=== PATIENT | female | born 1960 | race Caucasian/White ===

== ENCOUNTER 2016-10-22 13:57 | Emergency (ER) | payer MEDICAID ==
[~2016-10-22] VITALS: Ht 175.3 cm; Wt 108.9 kg
--- OUTSIDE RECORDS SUMMARY | 2016-10-22 14:06 | XMS REPORT | Continuity of Care Document ---
Author Author [facility] Address Unknown Phone Unavailable Allergies Active Description Code Type Severity Reaction Onset Reported/Identified Relationship to Patient Clinical Status Yes codeine Drug Allergy N/A N/A 12/15/2009 Yes Penicillins Drug Allergy N/A N/A 12/15/2009 Yes codeine Drug Allergy 12/15/2009 Yes Penicillins Drug Allergy 12/15/2009 Medications Problems Date Dx Coded Attending Type Code Diagnosis Diagnosed By 12/15/2009 PAMELLA PHAM MD 309.81 POSTTRAUMATIC STRESS DISORDER 12/15/2009 PAMELLA PHAM MD 401.9 HYPERTENSION, UNSPECIFIED ESSENTIAL 12/15/2009 PAMELLA PHAM MD 716.90 ARTHRITIS/ ARTHROPATHY, UNSPECIFIED 12/15/2009 DUDLEY MIGUEL DO 309.81 POSTTRAUMATIC STRESS DISORDER 12/15/2009 DUDLEY MIGUEL DO 401.9 HYPERTENSION, UNSPECIFIED ESSENTIAL 12/15/2009 DUDLEY MIGUEL DO 716.90 ARTHRITIS/ ARTHROPATHY, UNSPECIFIED 12/15/2009 PAMELLA PHAM MD 309.81 POSTTRAUMATIC STRESS DISORDER 12/15/2009 PAMELLA PHAM MD 401.9 HYPERTENSION, UNSPECIFIED ESSENTIAL 12/15/2009 PAMELLA PHAM MD6.90 ARTHRITIS/ ARTHROPATHY, UNSPECIFIED 12/15/2009 PAMELLA PHAM MD 309.81 POSTTRAUMATIC STRESS DISORDER 12/15/2009 PAMELLA PHAM MD 401.9 HYPERTENSION, UNSPECIFIED ESSENTIAL 12/15/2009 PAMELLA PHAM MD6.90 ARTHRITIS/ ARTHROPATHY, UNSPECIFIED 12/15/2009 PAMELLA PHAM MD 309.81 POSTTRAUMATIC STRESS DISORDER 12/15/2009 PAMELLA PHAM MD 401.9 HYPERTENSION, UNSPECIFIED ESSENTIAL 12/15/2009 PAMELLA PHAM MD6.90 ARTHRITIS/ ARTHROPATHY, UNSPECIFIED 12/15/2009 309.81 POSTTRAUMATIC STRESS DISORDER 12/15/2009 401.9 HYPERTENSION, UNSPECIFIED ESSENTIAL 12/15/2009 716.90 ARTHRITIS/ ARTHROPATHY, UNSPECIFIED 12/15/2009 309.81 POSTTRAUMATIC STRESS DISORDER 12/15/2009 401.9 HYPERTENSION, UNSPECIFIED ESSENTIAL 12/15/2009 716.90 ARTHRITIS/ ARTHROPATHY, UNSPECIFIED 12/15/2009 309.81 POSTTRAUMATIC STRESS DISORDER 12/15/2009 401.9 HYPERTENSION, UNSPECIFIED ESSENTIAL 12/15/2009 716.90 ARTHRITIS/ ARTHROPATHY, UNSPECIFIED 12/15/2009 VERO DENIS, PAMELLA 309.81 POSTTRAUMATIC STRESS DISORDER 12/15/2009 VERO DENIS, PAMELLA 401.9 HYPERTENSION, UNSPECIFIED ESSENTIAL 12/15/2009 VERO DENIS, PAMELLA Joyce6.90 ARTHRITIS/ ARTHROPATHY, UNSPECIFIED 12/15/2009 VERO DENIS, PAMELLA 309.81 POSTTRAUMATIC STRESS DISORDER 12/15/2009 VERO DENIS, PAMELLA 401.9 HYPERTENSION, UNSPECIFIED ESSENTIAL 12/15/2009 VERO DENIS, PAMELLA Joyce6.90 ARTHRITIS/ ARTHROPATHY, UNSPECIFIED 12/15/2009 VERO DENIS, PAMELLA 309.81 POSTTRAUMATIC STRESS DISORDER 12/15/2009 VERO DENIS, PAMELLA 401.9 HYPERTENSION, UNSPECIFIED ESSENTIAL 12/15/2009 VERO DENIS, PAMELLA Rivera.90 ARTHRITIS/ ARTHROPATHY, UNSPECIFIED 12/15/2009 VERO DENIS, PAMELLA 309.81 POSTTRAUMATIC STRESS DISORDER 12/15/2009 VERO DENIS, PAMELLA 401.9 HYPERTENSION, UNSPECIFIED ESSENTIAL 12/15/2009 VERO DENIS, PAMELLA Rivera.90 ARTHRITIS/ ARTHROPATHY, UNSPECIFIED 12/15/2009 309.81 POSTTRAUMATIC STRESS DISORDER 12/15/2009 401.9 HYPERTENSION, UNSPECIFIED ESSENTIAL 12/15/2009 Isiah6.90 ARTHRITIS/ ARTHROPATHY, UNSPECIFIED 12/15/2009 VERO DENIS, PAMELLA 309.81 POSTTRAUMATIC STRESS DISORDER 12/15/2009 VERO DENIS, PAMELLA 401.9 HYPERTENSION, UNSPECIFIED ESSENTIAL 12/15/2009 VERO DENIS, PAMELLA Rivera.90 ARTHRITIS/ ARTHROPATHY, UNSPECIFIED 12/15/2009 VERO DENIS, PAMELLA 309.81 POSTTRAUMATIC STRESS DISORDER 12/15/2009 VERO DENIS, PAMELLA 401.9 HYPERTENSION, UNSPECIFIED ESSENTIAL 12/15/2009 VERO DENIS, PAMELLA Joyce6.90 ARTHRITIS/ ARTHROPATHY, UNSPECIFIED 12/15/2009 VERO DENIS, PAMELLA 309.81 POSTTRAUMATIC STRESS DISORDER 12/15/2009 VERO DENIS, PAMELLA 401.9 HYPERTENSION, UNSPECIFIED ESSENTIAL 12/15/2009 VERO DENIS, PAMELLA 716.90 ARTHRITIS/ ARTHROPATHY, UNSPECIFIED 12/15/2009 VERO DENIS, PAMELLA 309.81 POSTTRAUMATIC STRESS DISORDER 12/15/2009 VERO DENIS, PAMELLA 401.9 HYPERTENSION, UNSPECIFIED ESSENTIAL 12/15/2009 VERO DENIS, PAMELLA 716.90 ARTHRITIS/ ARTHROPATHY, UNSPECIFIED 12/15/2009 PRECIOUS THACKER, RAYRAY A 309.81 POSTTRAUMATIC STRESS DISORDER 12/15/2009 PRECIOUS THACKER, RAYRAY A 401.9 HYPERTENSION, UNSPECIFIED ESSENTIAL 12/15/2009 PRECIOUS APRN, RAYRAY A 716.90 ARTHRITIS/ ARTHROPATHY, UNSPECIFIED 02/09/2010 VERO DENIS, PAMELLA 296.30 MO DEPRESSIVE RECURRENT UNSPECIFIED 02/09/2010 PAMELLA PHAM MD V58.69 Medication High Risk 02/09/2010 DUDLEY MIGUEL DO 296.30 MO DEPRESSIVE RECURRENT UNSPECIFIED 02/09/2010 DUDLEY MIGUEL DO V58.69 Medication High Risk 02/09/2010 PAMELLA PHAM MD 296.30 MO DEPRESSIVE RECURRENT UNSPECIFIED 02/09/2010 PAMELLA PHAM MD V58.69 Medication High Risk 02/09/2010 PAMELLA PHAM MD 296.30 MO DEPRESSIVE RECURRENT UNSPECIFIED 02/09/2010 PAMELLA PHAM MD V58.69 Medication High Risk 02/09/2010 PAMELLA PHAM MD 296.30 MO DEPRESSIVE RECURRENT UNSPECIFIED 02/09/2010 PAMELLA PHAM MD V58.69 Medication High Risk 02/09/2010 296.30 MO DEPRESSIVE RECURRENT UNSPECIFIED 02/09/2010 V58.69 Medication High Risk 02/09/2010 296.30 MO DEPRESSIVE RECURRENT UNSPECIFIED 02/09/2010 V58.69 Medication High Risk 02/09/2010 296.30 MO DEPRESSIVE RECURRENT UNSPECIFIED 02/09/2010 V58.69 Medication High Risk 02/09/2010 PAMELLA PHAM MD 296.30 MO DEPRESSIVE RECURRENT UNSPECIFIED 02/09/2010 PAMELLA PHAM MD V58.69 Medication High Risk 02/09/2010 VERO DENIS, PAMELLA 296.30 MO DEPRESSIVE RECURRENT UNSPECIFIED 02/09/2010 PAMELLA PHAM MD V58.69 Medication High Risk 02/09/2010 VERO DENIS, PAMELLA 296.30 MO DEPRESSIVE RECURRENT UNSPECIFIED 02/09/2010 VERO DENIS, PAMELLA V58.69 Medication High Risk 02/09/2010 VERO DENIS, PAMELLA 296.30 MO DEPRESSIVE RECURRENT UNSPECIFIED 02/09/2010 VERO DENIS, PAMELLA V58.69 Medication High Risk 02/09/2010 296.30 MO DEPRESSIVE RECURRENT UNSPECIFIED 02/09/2010 V58.69 Medication High Risk 02/09/2010 VERO DENIS, PAMELLA 296.30 MO DEPRESSIVE RECURRENT UNSPECIFIED 02/09/2010 VERO DENIS, PAMELLA V58.69 Medication High Risk 02/09/2010 VERO DENIS, PAMELLA 296.30 MO DEPRESSIVE RECURRENT UNSPECIFIED 02/09/2010 VERO DENIS, PAMELLA V58.69 Medication High Risk 02/09/2010 VERO DENIS, PAMELLA 296.30 MO DEPRESSIVE RECURRENT UNSPECIFIED 02/09/2010 VERO DENIS, PAMELLA V58.69 Medication High Risk 02/09/2010 VERO DENIS, PAMELLA 296.30 MO DEPRESSIVE RECURRENT UNSPECIFIED 02/09/2010 VERO DENIS, PAMELLA V58.69 Medication High Risk 02/09/2010 PRECIOUS THACKER, RAYRAY A 296.30 MO DEPRESSIVE RECURRENT UNSPECIFIED 02/09/2010 PRECIOUS THACKER RAYRAY A V58.69 Medication High Risk 05/21/2010 VERO DENIS, PAMELLA 461.9 Sinusitis Acute 05/21/2010 DUDLEY MIGUEL DO 461.9 Sinusitis Acute 05/21/2010 VERO DENIS, PAMELLA 461.9 Sinusitis Acute 05/21/2010 PAMELLA PHAM MD 461.9 Sinusitis Acute 05/21/2010 PAMELLA PHAM MD 461.9 Sinusitis Acute 05/21/2010 461.9 Sinusitis Acute 05/21/2010 461.9 Sinusitis Acute 05/21/2010 461.9 Sinusitis Acute 05/21/2010 VERO DENIS, PAMELLA 461.9 Sinusitis Acute 05/21/2010 VERO DENIS, PAMELLA 461.9 Sinusitis Acute 05/21/2010 VERO DENIS, PAMELLA 461.9 Sinusitis Acute 05/21/2010 PAMELLA PHAM MD 461.9 Sinusitis Acute 05/21/2010 461.9 Sinusitis Acute 05/21/2010 PAMELLA PHAM MD 461.9 Sinusitis Acute 05/21/2010 VERO DENIS, PAMELLA 461.9 Sinusitis Acute 05/21/2010 VERO DENIS, PAMELLA 461.9 Sinusitis Acute 05/21/2010 VERO DENIS, PAMELLA 461.9 Sinusitis Acute 05/21/2010 PRECIOUS THACKER, RAYRAY A 461.9 Sinusitis Acute 08/31/2010 PAMELLA PHAM MD 296.90 UNSPECIFIED EPISODIC MOOD DISORDER 08/31/2010 DUDLEY MIGUEL DO 296.90 UNSPECIFIED EPISODIC MOOD DISORDER 08/31/2010 PAMELLA PHAM MD 296.90 UNSPECIFIED EPISODIC MOOD DISORDER 08/31/2010 PAMELLA PHAM MD 296.90 UNSPECIFIED EPISODIC MOOD DISORDER 08/31/2010 PAMELLA PHAM MD 296.90 UNSPECIFIED EPISODIC MOOD DISORDER 08/31/2010 296.90 UNSPECIFIED EPISODIC MOOD DISORDER 08/31/2010 296.90 UNSPECIFIED EPISODIC MOOD DISORDER 08/31/2010 296.90 UNSPECIFIED EPISODIC MOOD DISORDER 08/31/2010 PAMELLA PHAM MD 296.90 UNSPECIFIED EPISODIC MOOD DISORDER 08/31/2010 PAMELLA PHAM MD 296.90 UNSPECIFIED EPISODIC MOOD DISORDER 08/31/2010 PAMELLA PHAM MD 296.90 UNSPECIFIED EPISODIC MOOD DISORDER 08/31/2010 PAMELLA PHAM MD 296.90 UNSPECIFIED EPISODIC MOOD DISORDER 08/31/2010 296.90 UNSPECIFIED EPISODIC MOOD DISORDER 08/31/2010 PAMELLA PHAM MD 296.90 UNSPECIFIED EPISODIC MOOD DISORDER 08/31/2010 PAMELLA PHAM MD 296.90 UNSPECIFIED EPISODIC MOOD DISORDER 08/31/2010 PAMELLA PHAM MD 296.90 UNSPECIFIED EPISODIC MOOD DISORDER 08/31/2010 PAMELLA PHAM MD 296.90 UNSPECIFIED EPISODIC MOOD DISORDER 08/31/2010 RAYRAY LANG APRN A 296.90 UNSPECIFIED EPISODIC MOOD DISORDER 09/21/2010 PAMELLA PHAM MD 305.1 TOBACCO ABUSE 09/21/2010 PAMELLA PHAM MD 466.0 Bronchitis, Acute 09/21/2010 PAMELLA PHAM MD 786.2 Cough 09/21/2010 DUDLEY MIGUEL DO F 305.1 TOBACCO ABUSE 09/21/2010 DUDLEY MIGUEL DO F 466.0 Bronchitis, Acute 09/21/2010 DUDLEY MIGUEL DO F 786.2 Cough 09/21/2010 VERO DENIS, PAMELLA 305.1 TOBACCO ABUSE 09/21/2010 VERO DENIS, PAMELLA 466.0 Bronchitis, Acute 09/21/2010 VERO DENIS, PAMELLA 786.2 Cough 09/21/2010 VERO DENIS, PAMELLA 305.1 TOBACCO ABUSE 09/21/2010 VERO DENIS, PAMELLA 466.0 Bronchitis, Acute 09/21/2010 VERO DENIS, PAMELLA 786.2 Cough 09/21/2010 VERO DENIS, PAMELLA 305.1 TOBACCO ABUSE 09/21/2010 VERO DENIS, PAMELLA 466.0 Bronchitis, Acute 09/21/2010 VERO DENIS, PAMELLA 786.2 Cough 09/21/2010 305.1 TOBACCO ABUSE 09/21/2010 466.0 Bronchitis, Acute 09/21/2010 786.2 Cough 09/21/2010 305.1 TOBACCO ABUSE 09/21/2010 466.0 Bronchitis, Acute 09/21/2010 786.2 Cough 09/21/2010 305.1 TOBACCO ABUSE 09/21/2010 466.0 Bronchitis, Acute 09/21/2010 786.2 Cough 09/21/2010 VERO DENIS, PAMELLA 305.1 TOBACCO ABUSE 09/21/2010 VERO DENIS, PAMELLA 466.0 Bronchitis, Acute 09/21/2010 VERO DENIS, PAMELLA 786.2 Cough 09/21/2010 VERO DENIS, PAMELLA 305.1 TOBACCO ABUSE 09/21/2010 VERO DENIS, PAMELLA 466.0 Bronchitis, Acute 09/21/2010 VERO DENIS, PAMELLA 786.2 Cough 09/21/2010 VERO DENIS, PAMELLA 305.1 TOBACCO ABUSE 09/21/2010 VERO DENIS, PAMELLA 466.0 Bronchitis, Acute 09/21/2010 VERO DENIS, PAMELLA 786.2 Cough 09/21/2010 VERO DENIS, PAMELLA 305.1 TOBACCO ABUSE 09/21/2010 VERO DENIS, PAMELLA 466.0 Bronchitis, Acute 09/21/2010 VERO DENIS, PAMELLA 786.2 Cough 09/21/2010 305.1 TOBACCO ABUSE 09/21/2010 466.0 Bronchitis, Acute 09/21/2010 786.2 Cough 09/21/2010 VERO DENIS, PAMELLA 305.1 TOBACCO ABUSE 09/21/2010 VERO DENIS, PAMELLA 466.0 Bronchitis, Acute 09/21/2010 VERO DENIS, PAMELLA 786.2 Cough 09/21/2010 VERO DENIS, PAMELLA 305.1 TOBACCO ABUSE 09/21/2010 VERO DENIS, PAMELLA 466.0 Bronchitis, Acute 09/21/2010 VERO DENIS, PAMELLA 786.2 Cough 09/21/2010 VERO DENIS, PAMELLA 305.1 TOBACCO ABUSE 09/21/2010 VERO DENIS, PAMELLA 466.0 Bronchitis, Acute 09/21/2010 VERO DENIS, PAMELLA 786.2 Cough 09/21/2010 VERO DENIS, PAMELLA 305.1 TOBACCO ABUSE 09/21/2010 VERO DENIS, PAMELLA 466.0 Bronchitis, Acute 09/21/2010 VERO DENIS, PAMELLA 786.2 Cough 09/21/2010 PRECIOUS ONLINE MEDIA BUYER, RAYRAY A 305.1 TOBACCO ABUSE 09/21/2010 PRECIOUS ONLINE MEDIA BUYER, RAYRAY A 466.0 Bronchitis, Acute 09/21/2010 PRECIOUS ONLINE MEDIA BUYER, RAYRAY A 786.2 Cough 11/12/2010 VERO DENIS, PAMELLA 070.54 CHRONIC HEPATITIS C WITHOUT HEPATIC COMA 11/12/2010 DUDLEY MIGUEL DO 070.54 CHRONIC HEPATITIS C WITHOUT HEPATIC COMA 11/12/2010 PAMELLA PHAM MD 070.54 CHRONIC HEPATITIS C WITHOUT HEPATIC COMA 11/12/2010 PAMELLA PHAM MD 070.54 CHRONIC HEPATITIS C WITHOUT HEPATIC COMA 11/12/2010 PAMELLA PHAM MD 070.54 CHRONIC HEPATITIS C WITHOUT HEPATIC COMA 11/12/2010 070.54 CHRONIC HEPATITIS C WITHOUT HEPATIC COMA 11/12/2010 070.54 CHRONIC HEPATITIS C WITHOUT HEPATIC COMA 11/12/2010 070.54 CHRONIC HEPATITIS C WITHOUT HEPATIC COMA 11/12/2010 PAMELLA PHAM MD 070.54 CHRONIC HEPATITIS C WITHOUT HEPATIC COMA 11/12/2010 VERO DENIS, PAEMLLA 070.54 CHRONIC HEPATITIS C WITHOUT HEPATIC COMA 11/12/2010 PAMELLA PHAM MD 070.54 CHRONIC HEPATITIS C WITHOUT HEPATIC COMA 11/12/2010 PAMELLA PHAM MD 070.54 CHRONIC HEPATITIS C WITHOUT HEPATIC COMA 11/12/2010 070.54 CHRONIC HEPATITIS C WITHOUT HEPATIC COMA 11/12/2010 PAMELLA PHAM MD 070.54 CHRONIC HEPATITIS C WITHOUT HEPATIC COMA 11/12/2010 PAMELLA PHAM MD 070.54 CHRONIC HEPATITIS C WITHOUT HEPATIC COMA 11/12/2010 PAMELLA PHAM MD 070.54 CHRONIC HEPATITIS C WITHOUT HEPATIC COMA 11/12/2010 PAMELLA PHAM MD 070.54 CHRONIC HEPATITIS C WITHOUT HEPATIC COMA 11/12/2010 RAYRAY LANG APRN 070.54 CHRONIC HEPATITIS C WITHOUT HEPATIC COMA 08/07/2012 PAMELLA PHAM MD 558.9 Other And Unspecified Noninfectious Gastroenteritis And Colitis 08/07/2012 DUDLEY MIGUEL DO 558.9 Other And Unspecified Noninfectious Gastroenteritis And Colitis 08/07/2012 PAMELLA PHAM MD8.9 Other And Unspecified Noninfectious Gastroenteritis And Colitis 08/07/2012 PAMELLA PHAM MD8.9 Other And Unspecified Noninfectious Gastroenteritis And Colitis 08/07/2012 PAMELLA PHAM MD8.9 Other And Unspecified Noninfectious Gastroenteritis And Colitis 08/07/2012 558.9 Other And Unspecified Noninfectious Gastroenteritis And Colitis 08/07/2012 558.9 Other And Unspecified Noninfectious Gastroenteritis And Colitis 08/07/2012 558.9 Other And Unspecified Noninfectious Gastroenteritis And Colitis 08/07/2012 PAMELLA PHAM MD8.9 Other And Unspecified Noninfectious Gastroenteritis And Colitis 08/07/2012 PAMELLA PHAM MD8.9 Other And Unspecified Noninfectious Gastroenteritis And Colitis 08/07/2012 PAMELLA PHAM MD 558.9 Other And Unspecified Noninfectious Gastroenteritis And Colitis 08/07/2012 PAMELLA PHAM MD8.9 Other And Unspecified Noninfectious Gastroenteritis And Colitis 08/07/2012 PAMELLA PHAM MD8.9 Other And Unspecified Noninfectious Gastroenteritis And Colitis 08/07/2012 PAMELLA HPAM MD8.9 Other And Unspecified Noninfectious Gastroenteritis And Colitis 08/07/2012 PAMELLA PHAM MD8.9 Other And Unspecified Noninfectious Gastroenteritis And Colitis 08/07/2012 PAMELLA PHAM MD8.9 Other And Unspecified Noninfectious Gastroenteritis And Colitis 08/07/2012 RAYRAY LANG APRN A 558.9 Other And Unspecified Noninfectious Gastroenteritis And Colitis 09/04/2012 DUDLEY MIGUEL DO F 300.00 AN ANXIETY UNSPEC 09/04/2012 DUDLEY MIGUEL DO 307.47 SI DYSSOMNIA NOS 09/04/2012 VERO DENIS, PAMELLA 300.00 AN ANXIETY UNSPEC 09/04/2012 VERO DENIS, PAMELLA 307.47 SI DYSSOMNIA NOS 09/04/2012 VERO DENIS, PAMELLA 300.00 AN ANXIETY UNSPEC 09/04/2012 VERO DENIS, PAMELLA 307.47 SI DYSSOMNIA NOS 09/04/2012 VERO DENIS, PAMELLA 300.00 AN ANXIETY UNSPEC 09/04/2012 VERO DENIS, PAMELLA 307.47 SI DYSSOMNIA NOS 09/04/2012 300.00 AN ANXIETY UNSPEC 09/04/2012 307.47 SI DYSSOMNIA NOS 09/04/2012 300.00 AN ANXIETY UNSPEC 09/04/2012 307.47 SI DYSSOMNIA NOS 09/04/2012 300.00 AN ANXIETY UNSPEC 09/04/2012 307.47 SI DYSSOMNIA NOS 09/04/2012 PAMELLA PHAM MD 300.00 AN ANXIETY UNSPEC 09/04/2012 PAMELLA PHAM MD 307.47 SI DYSSOMNIA NOS 09/04/2012 PAMELLA PHAM MD 300.00 AN ANXIETY UNSPEC 09/04/2012 VERO DENIS, PAMELLA 307.47 SI DYSSOMNIA NOS 09/04/2012 VERO DENIS, PAMELLA 300.00 AN ANXIETY UNSPEC 09/04/2012 VERO DENIS, PAMELLA 307.47 SI DYSSOMNIA NOS 09/04/2012 VERO DENIS, PAMELLA 300.00 AN ANXIETY UNSPEC 09/04/2012 PAMELLA PHAM MD 307.47 SI DYSSOMNIA NOS 09/04/2012 PAMELLA PHAM MD 300.00 AN ANXIETY UNSPEC 09/04/2012 PAMELLA PHAM MD 307.47 SI DYSSOMNIA NOS 09/04/2012 PAMELLA PHAM MD 300.00 AN ANXIETY UNSPEC 09/04/2012 PAMELLA PHAM MD 307.47 SI DYSSOMNIA NOS 09/04/2012 VERO DENIS, PAMELLA 300.00 AN ANXIETY UNSPEC 09/04/2012 PAMELLA PHAM MD 307.47 SI DYSSOMNIA NOS 09/04/2012 PAMELLA PHAM MD 300.00 AN ANXIETY UNSPEC 09/04/2012 PAMELLA PHAM MD 307.47 SI DYSSOMNIA NOS 09/04/2012 PRECIOUS ONLINE MEDIA BUYER, RAYRAY A 300.00 AN ANXIETY UNSPEC 09/04/2012 PRECIOUS ONLINE MEDIA BUYER, RAYRAY A 307.47 SI DYSSOMNIA NOS 09/19/2012 VERO DENIS, PAMELLA 789.00 ABDOMINAL PAIN UNSPECIFIED SITE 09/19/2012 VERO DENIS, PAMELLA 789.00 ABDOMINAL PAIN UNSPECIFIED SITE 09/19/2012 VERO DENIS, PAMELLA 789.00 ABDOMINAL PAIN UNSPECIFIED SITE 09/19/2012 789.00 ABDOMINAL PAIN UNSPECIFIED SITE 09/19/2012 789.00 ABDOMINAL PAIN UNSPECIFIED SITE 09/19/2012 789.00 ABDOMINAL PAIN UNSPECIFIED SITE 09/19/2012 VERO DENIS, PAMELLA 789.00 ABDOMINAL PAIN UNSPECIFIED SITE 09/19/2012 VERO DENIS, PAMELLA 789.00 ABDOMINAL PAIN UNSPECIFIED SITE 09/19/2012 VERO DENIS, PAMELLA 789.00 ABDOMINAL PAIN UNSPECIFIED SITE 09/19/2012 VERO DENIS, PAMELLA 789.00 ABDOMINAL PAIN UNSPECIFIED SITE 09/19/2012 VERO DENIS, PAMELLA 789.00 ABDOMINAL PAIN UNSPECIFIED SITE 09/19/2012 VERO DENIS, PAMELLA 789.00 ABDOMINAL PAIN UNSPECIFIED SITE 09/19/2012 VERO DENIS, PAMELLA 789.00 ABDOMINAL PAIN UNSPECIFIED SITE 09/19/2012 VERO DENIS, PAMELLA 789.00 ABDOMINAL PAIN UNSPECIFIED SITE 09/19/2012 PRECIOUS ONLINE MEDIA BUYER, RAYRAY A 789.00 ABDOMINAL PAIN UNSPECIFIED SITE 03/13/2013 PAMELLA PHAM MD 571.2 CIRRHOSIS OF LIVER - ALCOHOL INDUCED 03/13/2013 PAMELLA PHAM MD1.2 CIRRHOSIS OF LIVER - ALCOHOL INDUCED 03/13/2013 PAMELLA PHAM MD 571.2 CIRRHOSIS OF LIVER - ALCOHOL INDUCED 03/13/2013 PAMELLA PHAM MD1.2 CIRRHOSIS OF LIVER - ALCOHOL INDUCED 03/13/2013 PAMELLA PHAM MD1.2 CIRRHOSIS OF LIVER - ALCOHOL INDUCED 03/13/2013 PAMELLA PHAM MD 571.2 CIRRHOSIS OF LIVER - ALCOHOL INDUCED 03/13/2013 PAMELLA PHAM MD 571.2 CIRRHOSIS OF LIVER - ALCOHOL INDUCED 03/13/2013 PAMELLA PHAM MD 571.2 CIRRHOSIS OF LIVER - ALCOHOL INDUCED 03/13/2013 RAYRAY LANG APRN 571.2 CIRRHOSIS OF LIVER - ALCOHOL INDUCED 07/13/2013 VERO DENIS, PAMELLA V04.81 FLU SHOT 07/13/2013 VERO DENIS, PAMELLA V04.81 FLU SHOT 07/13/2013 VERO DENIS, PAMELLA V04.81 FLU SHOT 07/13/2013 VERO DENIS, PAMELLA V04.81 FLU SHOT 07/13/2013 VERO DENIS, PAMELLA V04.81 FLU SHOT 07/13/2013 VERO DENIS, PAMELLA V04.81 FLU SHOT 07/13/2013 RAYRAY LANG APRN V04.81 FLU SHOT 05/20/2014 VERO DENIS, PAMELLA 276.8 HYPOPOTASSEMIA 05/20/2014 VERO DENIS, PAMELLA 380.10 INFECTIVE OTITIS EXTERNA UNSPECIFIED 05/20/2014 VERO DENIS, APMELLA 276.8 HYPOPOTASSEMIA 05/20/2014 VERO DENIS, PAMELLA 380.10 INFECTIVE OTITIS EXTERNA UNSPECIFIED 05/20/2014 RAYRAY LANG APRN 276.8 HYPOPOTASSEMIA 05/20/2014 RAYRAY LANG APRN 380.10 INFECTIVE OTITIS EXTERNA UNSPECIFIED 10/02/2014 RAYRAY LANG APRN 611.71 MASTODYNIA 10/02/2014 RAYRAY LANG APRN V65.42 COUNSELING - SMOKING CESSATION 10/02/2014 RAYRAY LANG APRN V72.31 ICE CREAM DIPPER EXAM, ROUTINE 10/02/2014 RAYRAY LANG APRN V73.81 HPV SCREENING 10/02/2014 RAYRAY LANG APRN V74.5 STD SCREEN 10/02/2014 RAYRAY LANG APRN V76.10 BREAST CANCER SCREENING 10/02/2014 RAYRAY LANG APRN V76.2 CERVICAL CANCER SCREENING (PAP SMEAR) Procedures Code Description [place] [id number] ROUTINE VENIPUNCTURE 08/07/2012 37229 URINE DRUG SCREEN (IN-HOUSE) 08/07/2012 63031 CBC 08/07/2012 36748 CMP 08/07/2012 [id number] GFR CALC (RESULT ONLY) 08/07/2012 42353 URINE DRUG SCREEN (IN-HOUSE) 08/17/2012 84477 ROUTINE VENIPUNCTURE 09/19/2012 48322 CMP 09/19/2012 [id number] GFR CALC (RESULT ONLY) 09/19/2012 04810 CBC 09/20/2012 71608 ROUTINE VENIPUNCTURE 09/22/2012 38753 HEP A ANTIBODY, IGM (RML) 09/23/2012 18223 HEP B SURFACE ANTIBODY 09/23/2012 19594 AFP TUMOR MARKER 09/23/2012 25846 URINE DRUG SCREEN (IN-HOUSE) 11/13/2012 23293 ROUTINE VENIPUNCTURE 01/26/2013 44968 CBC 01/26/2013 01805 CMP 01/26/2013 [id number] GFR CALC (RESULT ONLY) 01/26/2013 20770 TSH 01/27/2013 10509 HEP C PCR QUANT (SERIAL) 01/29/2013 55564 HEP B SURFACE ANTIGEN (RML) 01/29/2013 59588 HEP A ANTIBODY, IGM (RML) 01/29/2013 52556 HEP B SURFACE ANTIBODY 01/30/2013 85163 URINE DRUG SCREEN (IN-HOUSE) 02/09/2013 69396 ROUTINE VENIPUNCTURE 03/29/2013 24994 CBC 03/29/2013 11071 CMP 03/29/2013 [id number] GFR CALC (RESULT ONLY) 03/29/2013 53614 ROUTINE VENIPUNCTURE 06/14/2013 33468 MAMMOGRAM, SCREENING 06/14/2013 15740 HEP C PCR QUANT (SERIAL) 06/14/2013 41163 URINE DRUG SCREEN (IN-HOUSE) 06/14/2013 76734 CBC 06/14/2013 32756 CMP 06/14/2013 [id number] GFR CALC (RESULT ONLY) 06/14/2013 61092 PT/INR 2012 37243 HEP C PCR QUANT (SERIAL) 06/23/2013 56678 ROUTINE VENIPUNCTURE 07/13/2013 [id number] GFR CALC (RESULT ONLY) 07/13/2013 22004 CMP 07/13/2013 59903 CBC 07/13/2013 23832 DIFFERENTIAL WBC COUNT (CBC DIFF RESULT) 07/13/2013 28915 TSH 07/13/2013 90293 PT/INR 2012 60756 AMMONIA 2012 71397 AFP TUMOR MARKER 07/14/2013 22775 ROUTINE VENIPUNCTURE 09/25/2013 79551 URINE DRUG SCREEN (IN-HOUSE) 09/25/2013 7571967 GFR CALC (RESULT ONLY) 09/25/2013 54128 CMP 09/25/2013 32277 ROUTINE VENIPUNCTURE 05/07/2014 97698 CMP 05/07/2014 7240777 GFR CALC (RESULT ONLY) 05/07/2014 38006 HEP C PCR QUANT (SERIAL) 05/09/2014 37507 MAMMOGRAM DX, HIRAM 10/02/2014 32452 GC/CHLAM PROBE (STATE) 10/02/2014 Q0091 PAP SMEAR OBTAIN SMEAR 10/02/2014 50669 TRICHOMONAS (IN-HOUSE) 10/02/2014 94398 CULTURE UROGENITAL 10/05/2014 82972 PAP SMEAR 2014 Results Encounters ACCT No. Visit Date/Time Discharge Status Pt. Type Provider Facility Loc./Unit Complaint [id number] 10/02/2014 11:35:00 10/02/2014 23: 59:59 CLS Outpatient RAYRAY LANG APRN [id number] 09/09/2014 15:17:00 09/09/2014 23: 59:59 CLS Outpatient PAMELLA PHAM MD [id number] 05/20/2014 13:13:00 05/20/2014 23: 59:59 CLS Outpatient PAMELLA PHAM MD [id number] 05/07/2014 10:56:00 05/07/2014 23: 59:59 CLS Outpatient PAMELLA HPAM MD [id number] 09/25/2013 14:16:00 09/25/2013 23: 59:59 CLS Outpatient PAMELLA PHAM MD [id number] 09/25/2013 14:16:00 09/25/2013 23: 59:59 CLS Outpatient PAMELLA PHAM MD [id number] 06/14/2013 09:39:00 06/14/2013 23: 59:59 CLS Outpatient PAMELLA PHAM MD [id number] 06/14/2013 09:39:00 06/14/2013 23: 59:59 CLS Outpatient PAMELLA PHAM MD [id number] 03/29/2013 08:05:00 03/29/2013 23: 59:59 CLS Outpatient PAMELLA PHAM MD [id number] 11/13/2012 10:23:00 11/13/2012 23: 59:59 CLS Outpatient PAMELLA PHAM MD [id number] 09/22/2012 09:36:00 09/22/2012 23: 59:59 CLS Outpatient PAMELLA PHAM MD [id number] 09/19/2012 15:41:00 09/19/2012 23: 59:59 CLS Outpatient PAMELLA PHAM MD [id number] 09/04/2012 15:34:00 09/04/2012 23: 59:59 CLS Outpatient DUDLEY MIGUEL DO [id number] 08/17/2012 15:15:00 08/17/2012 23: 59:59 [place] [id number] 05/19/2012 09:45:00 05/19/2012 23: 59:59 CLS Outpatient [id number] 02/27/2013 07:51:00 Document Registration [id number] 02/13/2013 10:01:00 Document Registration [id number] 01/26/2013 08:38:00 Document Registration
--- NOTE | 2016-10-22 14:33 | ED Integumentary General ---
General Chief Complaint: Skin/Wound Problems Stated Complaint: RASH ON BREASTS Nursing Triage Note: PT CO OF RASH BETWEEN BREASTS, RASH REDDEND AND PAINFUL Source: patient Exam Limitations: no limitations History of Present Illness Time seen by provider: 14:16 Initial Comments 56-year-old female patient presents to the emergency department complains of a burning/pruritic rash between the breasts. Patient reports it is now becoming more painful and erythematous. Patient was seen by her PCP and given 2 doses of Diflucan 1 week apart and nystatin cream without improvement in symptoms. States symptoms are actually worse after the nystatin cream. Timing/Duration: week, getting worse Location: torso Possible Cause: no cause identified Modifying Factors: worse with scratching, worse with other (worse with topical nystatin) Associated Symptoms: No blisters, No edema, No fever, No flushing, No hives, No malaise, No petechiae, rashNo sore throat Allergies and Home Medications Allergies Coded Allergies: No Known Drug Allergies (Unverified , 10/22/16) Home Medications Alprazolam 1 Mg Tablet #60 (Reported) Atorvastatin Calcium 40 Mg Tablet #30 (Reported) Clotrimazole/Betamethasone Dip 15 Gm Cream..g. #1 15 GM TP BID Prescribed by: ANA JARAMILLO on 10/22/16 1440 Fluconazole 200 Mg Tablet #2 (Reported) Fluconazole 100 Mg Tablet #11 100 MG PO UD 2 po x1 dose, then 1 po daily Prescribed by: ANA JARAMILLO on 10/22/16 1440 Fluticasone Propionate 16 Gm [place].susp #16 (Reported) Hydroxyzine Pamoate 50 Mg Capsule #60 (Reported) Ibuprofen 800 Mg Tablet #90 (Reported) Lisinopril/Hydrochlorothiazide 1 Each Tablet #30 (Reported) Lurasidone HCl 40 Mg Tablet #30 (Reported) Nystatin 15 Gm Cream..g. #15 (Reported) Omeprazole 40 Mg Capsule.dr #30 (Reported) Trazodone HCl 100 Mg Tablet #30 (Reported) Vortioxetine Hydrobromide 10 Mg Tablet #30 (Reported) Zolpidem Tartrate 10 Mg Tablet #5 (Reported) Constitutional: No diaphoresis, No fever, No malaise EENTM: no symptoms reported Respiratory: no symptoms reported Cardiovascular: no symptoms reported Gastrointestinal: no symptoms reported Musculoskeletal: no symptoms reported Skin: see HPI rash Psychiatric/Neurological: No Symptoms Reported All Other Systems Reviewed Negative Unless Noted: Yes (Negative excepted noted.) Past Djljwyz-Tgiimx-Hzftes Hx Patient Social History Alcohol Use: Denies Use Recreational Drug Use: No Type Used: Electronic/Vapor Recent Foreign Travel: No Contact w/Someone Who Travel: No Recent Infectious Disease Expo: No Recent Hopitalizations: No Respiratory Hx Respiratory Disorders: No Cardiovascular Hx Cardiac Disorders: Yes Cardiac Disorders: High Cholesterol, Hypertension Neurological Hx Neurological Disorders: No Psychosocial Hx Psychiatric Problems: Yes Behavioral Health Disorders: Sleep Difficulties, Anxiety Integumentary HX Skin/Integumentary Disorder: Yes Reviewed Nursing Assessment Reviewed/Agree w Nursing PMH: Yes Family Medical History Significant Family History: No Pertinent Family Hx Physical Exam Vital Signs Vital Sign - Last 12Hours 10/22/16 14:15 Temp 97.4 Pulse 88 Resp 18 B/P 132/81 Pulse Ox 97 Capillary Refill : Less Than 3 Seconds General Appearance: WD/WN no apparent distress Cardiovascular: regular rate, rhythm no murmur Respiratory: lungs clear normal breath sounds no respiratory distress Neurologic/Psychiatric: alert normal mood/affect Skin: warm/dryNo cyanosis, No cool, No diaphoresis, No damp, rash Skin Problem Location: torso (between breasts and inferior breast skin folds) Skin Problem Character: erythema, rash, scales, tenderness Progress/Results/Core Measures Results/Orders Vital Signs/I&O Vital Sign - Last 12Hours 10/22/16 10/22/16 14:15 14:53 Temp 97.4 97.4 Pulse 88 88 Resp 18 18 B/P 132/81 Pulse Ox 97 97 Blood Pressure Mean: 98 Departure Communication Progress Notes Patient seen and evaluated. Plan for discharge home with oral Diflucan and Lotrisone cream. Impression Impression: Primary Impression: Tinea corporis Disposition: 01 HOME, SELF-CARE Condition: Improved Departure-Patient Inst. Decision time for Depature: 14:30 Referrals: NO,LOCAL PHYSICIAN (PCP/Family) Primary Care Physician Patient Instructions: Yeast Infection (DC) Add. Discharge Instructions: All discharge instructions reviewed with patient and/or family. Voiced understanding. medications as instructed. Avoid skin to skin contact. Use pillow cases to prevent irritation. Shower with antibacterial soap. Follow-up with your family practitioner for recheck. Return to the emergency department for worsened symptoms or any other concerns. Scripts Fluconazole 100 Mg [id number] Mg PO UD #11 TAB Ref 0 2 po x1 dose, then 1 po daily Prov:ANA JARAMILLO 10/22/16 Clotrimazole/Betamethasone Dip (Lotrisone Cream)15 Gm Cream..g.15 Gm TP BID #1 TUBE Ref 1 Prov:ANA JARAMILLO 10/22/16 ANA JARAMILLO Oct 22, 2016 14:33
[2016-10-22] MEDS ORDERED: VORT10TA (14:35)
[2016-10-22] MEDS ORDERED: ALPR1TAB7 (14:35)
[2016-10-22] MEDS ORDERED: IBUP-1780 (14:35)
[2016-10-22] MEDS ORDERED: FLUC200T5 (14:35)
[2016-10-22] MEDS ORDERED: NYST15CR (14:35)
[2016-10-22] MEDS ORDERED: TRAZ100T92 (14:35)
[2016-10-22] MEDS ORDERED: ZOLP10TA5 (14:35)
[2016-10-22] MEDS ORDERED: LISI1TAB6 (14:35)
[2016-10-22] MEDS ORDERED: ATOR40TA70 (14:35)
[2016-10-22] MEDS ORDERED: FLUT16SP22 (14:35)
[2016-10-22] MEDS ORDERED: LURA40TA3 (14:35)
[2016-10-22] MEDS ORDERED: OMEP40CA36 (14:35)
[2016-10-22] MEDS ORDERED: HYDR50CA3 (14:35)
[2016-10-22] MEDS ORDERED: CLOT15CR4 TP (14:40)
[2016-10-22] MEDS ORDERED: FLUC100T6 PO (14:40)
[2016-10-22 14:53] VITALS: BP 132/81
== END 2016-10-22 14:51 | disposition home or self-care (01) ==
LOC: EDUNIT# 13:57 → ER 14:01
DX: B35.4 Tinea corporis (principal); I10 Essential (primary) hypertension; Z79.899 Other long term (current) drug therapy
CPT/HCPCS: 99281

== ENCOUNTER → 2017-01-06 | Outpatient (CLI) | payer MEDICAID ==
[~2017-01-06] MED LIST: ALPR1TAB7; ATOR40TA70; CLOT15CR4 TP; FLUC100T6 PO; FLUC200T5; FLUT16SP22; HYDR50CA3; IBUP-1780; LISI1TAB6; LURA40TA3; NYST15CR; OMEP40CA36; TRAZ100T92; VORT10TA; ZOLP10TA5
--- NOTE | 2017-01-06 19:17 | Diagnostic Imaging Report ---
Bilateral screening mammogram The current study was also evaluated with a Computer Aided Detection (CAD) system. INDICATION: Screening. No current complaints stated on the questionnaire. COMPARISON: 11/01/14. FINDINGS: The breasts are composed of scattered fibroglandular densities. There is a biopsy clip in the medial aspect of the right breast. Unchanged 7 mm nodule in the medial aspect of the right breast from 2015 is also seen suggestive of benign etiology. There are scattered benign-appearing calcifications. Allowing for technique and positional differences, no suspicious change is seen. IMPRESSION: No significant change. ACR BI-RADS Category 2: Benign findings. Result letter will be mailed to the patient. Note: At least 10% of breast cancer is not imaged by mammography. Dictated by: Dictated on workstation # [id number]
== END ==
LOC: RAD 10:47
PROVIDERS: ATTEND Nurse Practitioner
DX: Z12.31 Encounter for screening mammogram for malignant neoplasm of breast (principal)
CPT/HCPCS: 77067

== ENCOUNTER 2017-02-27 04:37 | Emergency (ER) | payer MEDICAID ==
[~2017-02-27] VITALS: Ht 172.7 cm; Wt 110.2 kg
[2017-02-27 05:00] LABS: BASOPHILS % (AUTO) 0 % (0-10); EOSINOPHILS # (AUTO) 0.1 10^3/uL (0.0-0.3); EOSINOPHILS % (AUTO) 1 % (0-10); LYMPHOCYTES # (AUTO) 1.9 X 10^3 (1.0-4.0); LYMPHOCYTES % (AUTO) 19 % (12-44); MEAN CORPUSCULAR HEMOGLOBIN 30 PG (25-34); MEAN CORPUSCULAR HGB CONC 35 G/DL (32-36); MEAN CORPUSCULAR VOLUME 86 FL (80-99); MONOCYTES # (AUTO) 0.8 X 10^3 (0.0-1.0); MONOCYTES % (AUTO) 8 % (0-12); NEUTROPHILS # (AUTO) 7.3 X 10^3 (1.8-7.8); NEUTROPHILS % (AUTO) 72 % (42-75); PLATELET COUNT 270 10^3/uL (130-400); RED BLOOD COUNT 5.29 10^6/uL (4.35-5.85); RED CELL DISTRIBUTION WIDTH 12.6 % (10.0-14.5); WHITE BLOOD COUNT 10.1 10^3/uL (4.3-11.0)
[2017-02-27] MEDS ORDERED: RT-ALBUTEROL/IPRATROPIUM 3 ML (DUONEB) VIAL INH ONE (05:00)
--- NOTE | 2017-02-27 05:14 | ED Respiratory ---
General Chief Complaint: Respiratory Problems Stated Complaint: SOA Source: patient Exam Limitations: no limitations History of Present Illness Time seen by provider: 04:50 Initial Comments Here with report of shortness of breath that started after coughing and what she believes is mild aspiration of stomach acid. Denies fever or chills. She is currently being treated for a sinus infection with Medrol Dosepak and cephalexin. Denies nausea or vomiting. Does have history of regurg. Timing/Duration: just prior to arrival Severity: moderate Prior Episodes/Possible Cause: no prior episodes Modifying Factors: Worse With Coughing, Improves With Rest Associated Symptoms: cough, No fever/chills, nasal congestion, shortness of breath, wheezing Allergies and Home Medications Allergies Coded Allergies: No Known Drug Allergies (Unverified , 10/22/16) Home Medications Alprazolam 1 Mg Tablet, #60 (Reported) Atorvastatin Calcium 40 Mg Tablet, #30 (Reported) Clotrimazole/Betamethasone Dip 15 Gm Cream..g., 15 GM TP BID, #1 Ref 1 Prescribed by: ANA JARAMILLO on 10/22/16 1440 Fluconazole 200 Mg Tablet, #2 (Reported) Fluconazole 100 Mg Tablet, 100 MG PO UD, #11 Ref 0 2 po x1 dose, then 1 po daily Prescribed by: ANA JARAMILLO on 10/22/16 1440 Fluticasone Propionate 16 Gm [place].susp, #16 (Reported) Hydroxyzine Pamoate 50 Mg Capsule, #60 (Reported) Ibuprofen 800 Mg Tablet, #90 (Reported) Lisinopril/Hydrochlorothiazide 1 Each Tablet, #30 (Reported) Lurasidone HCl 40 Mg Tablet, #30 (Reported) Nystatin 15 Gm Cream..g., #15 (Reported) Omeprazole 40 Mg Capsule.dr, #30 (Reported) Trazodone HCl 100 Mg Tablet, #30 (Reported) Vortioxetine Hydrobromide 10 Mg Tablet, #30 (Reported) Zolpidem Tartrate 10 Mg Tablet, #5 (Reported) Constitutional: see HPI, No chills, No fever EENTM: no symptoms reported Respiratory: see HPI, cough, short of breath, wheezing Cardiovascular: no symptoms reported Gastrointestinal: see HPI, nausea, No vomiting Genitourinary: no symptoms reported Musculoskeletal: no symptoms reported Skin: no symptoms reported All Other Systems Reviewed Negative Unless Noted: Yes Past Kbxedqp-Hoxqdg-Vbrmcf Hx Patient Social History Alcohol Use: Occasionally Uses Recreational Drug Use: Yes Smoking Status: Current Everyday Smoker Type Used: Electronic/Vapor Recent Hopitalizations: No Surgeries HX Surgeries: No Respiratory Hx Respiratory Disorders: No Cardiovascular Hx Cardiac Disorders: Yes Cardiac Disorders: High Cholesterol, Hypertension Neurological Hx Neurological Disorders: No Psychosocial Hx Psychiatric Problems: Yes Behavioral Health Disorders: Sleep Difficulties, Anxiety Integumentary HX Skin/Integumentary Disorder: Yes Reviewed Nursing Assessment Reviewed/Agree w Nursing PMH: Yes Family Medical History Significant Family History: No Pertinent Family Hx Physical Exam Vital Signs Vital Sign - Last 12Hours 02/27/17 04:37 Temp 98.2 Pulse 78 Resp 20 B/P (MAP) 159/109 Pulse Ox 94 O2 Delivery Room Air Capillary Refill : General Appearance: WD/WN, mild distress (respiratory) HEENT: PERRL/EOMI, pharynx normal Neck: full range of motion, supple Respiratory: no respiratory distress, no accessory muscle use, wheezing (a few scattered) Cardiovascular: regular rate, rhythm, no murmur Gastrointestinal: non tender, soft Extremities: non-tender, normal inspection Neurologic/Psychiatric: alert, oriented x 3 Skin: normal color, warm/dry Progress/Results/Core Measures Results/Orders Lab Results Laboratory Tests Test 02/27/17 04:46 Range/Units White Blood Count 10.1 4.3-11.0 10^3/uL Red Blood Count 5.29 4.35-5.85 10^6/uL Hemoglobin 15.7 11.5-16.0 G/DL Hematocrit 45 35-52 % Mean Corpuscular Volume 86 80-99 FL Mean Corpuscular Hemoglobin 30 25-34 PG Mean Corpuscular Hemoglobin Concent 35 32-36 G/DL Red Cell Distribution Width 12.6 10.0-14.5 % Platelet Count 270 130-400 10^3/uL Mean Platelet Volume 10.0 7.4-10.4 FL Neutrophils (%) (Auto) 72 42-75 % Lymphocytes (%) (Auto) 19 12-44 % Monocytes (%) (Auto) 8 0-12 % Eosinophils (%) (Auto) 1 0-10 % Basophils (%) (Auto) 0 0-10 % Neutrophils # (Auto) 7.3 1.8-7.8 X 10^3 Lymphocytes # (Auto) 1.9 1.0-4.0 X 10^3 Monocytes # (Auto) 0.8 0.0-1.0 X 10^3 Eosinophils # (Auto) 0.1 0.0-0.3 10^3/uL Basophils # (Auto) 0.0 0.0-0.1 10^3/uL Sodium Level 139 135-145 MMOL/L Potassium Level 3.7 3.6-5.0 MMOL/L Chloride Level 104 98-107 MMOL/L Carbon Dioxide Level 24 21-32 MMOL/L Anion Gap 11 5-14 MMOL/L Blood Urea Nitrogen 18 7-18 MG/DL Creatinine 0.96 0.60-1.30 MG/DL Estimat Glomerular Filtration Rate > 60 BUN/Creatinine Ratio 19 Glucose Level 103 70-105 MG/DL Calcium Level 9.8 8.5-10.1 MG/DL Total Bilirubin 0.4 0.1-1.0 MG/DL Aspartate Amino Transf (AST/SGOT) 19 5-34 U/L Alanine Aminotransferase (ALT/SGPT) 19 0-55 U/L Alkaline Phosphatase 92 40-136 U/L Total Protein 7.8 6.4-8.2 GM/DL Albumin 4.1 3.2-4.5 GM/DL My Orders Orders - TOM MONTEZ MD Saline Lock/Iv-Start (02/27/17 04:55) Cbc With Automated Diff (02/27/17 04:55) Comprehensive Metabolic Panel (02/27/17 04:55) Chest Pa/Lat (2 View) (02/27/17 04:55) Albuterol/Ipra Inhalation Soln (Duoneb I (02/27/17 05:00) Svn Sm Volume Nebulizer Rt-Rfs (02/27/17 04:55) Albuterol Pre-Mix Nebs (Rt) (Proventil P (02/27/17 05:47) Dexamethasone Pf Injection (Decadron Pf (02/27/17 05:47) Svn Sm Volume Nebulizer Rt-Rfs (02/27/17 05:47) Albuterol Pre-Mix Nebs (Rt) (Proventil P (02/27/17 05:44) Dexamethasone Injection (Decadron Inject (02/27/17 05:45) Medications Given in ED Current Medications Medications Dose Ordered Sig/Lakshmi Route Start Time Stop Time Status Last Admin Dose Admin Albuterol Sulfate 2.5 mg STK-MED ONCE .ROUTE 02/27/17 05:44 02/27/17 05:50 DC 02/27/17 05:55 2.5 MG Albuterol/ Ipratropium 3 ml ONCE ONCE INH 02/27/17 05:00 02/27/17 05:01 DC 02/27/17 05:39 3 ML Dexamethasone Sodium Phosphate 4 mg STK-MED ONCE .ROUTE 02/27/17 05:45 02/27/17 05:51 DC 02/27/17 05:58 20 MG Vital Signs/I&O Vital Sign - Last 12Hours 02/27/17 04:37 Temp 98.2 Pulse 78 Resp 20 B/P (MAP) 159/109 Pulse Ox 94 O2 Delivery Room Air Progress Note : Progress Note Seen and evaluated. IV, labs, chest x-ray, EKG and DuoNeb ordered. Monitor patient. Repeat albuterol neb and Decadron 20 mg inhaled. Chest x-ray does not reveal any significant findings. Labs are normal. Patient is improving. Discharged home with return precautions. Patient verbalize understanding instructions and agreement with plan. ECG Initial ECG Impression Date: Feb 27, 2017 Initial ECG Impression Time: 04:43 Initial ECG Rate: 84 Initial ECG Rhythm: Normal Sinus Initial ECG Comparisson: No Previous ECG Available Comment Sinus rhythm with probable left atrial abdomen about a. Normal axis. No evidence of ST elevation [place]. Interpreted by me. Diagnostic Imaging Diagonstic Imaging: Xray Plain Films/CT/US/NM/MRI: chest Comments No acute findings. Chronic lung disease. Reviewed: Reviewed by Me Departure Impression Impression: Primary Impression: Aspiration pneumonitis Additional Impression: Reactive airway disease Qualified Codes: J45.20 - Mild intermittent asthma, uncomplicated Disposition: 01 HOME, SELF-CARE Condition: Improved Departure-Patient Inst. Referrals: NO,LOCAL PHYSICIAN (PCP/Family) Primary Care Physician Patient Instructions: Acute Bronchitis, Adult (DC) Add. Discharge Instructions: All discharge instructions reviewed with patient and/or family. Voiced understanding. Continue home medications as directed. You may use the inhaler as instructed. Follow up with your doctor early this week for recheck and further evaluation. Return for worse pain, fever, vomiting, weakness, breathing problems or other concerns as needed. TOM MONTEZ MD Feb 27, 2017 05:14
[2017-02-27 05:17] LABS: ALANINE AMINOTRANSFERASE 19 U/L (0-55); ALBUMIN 4.1 GM/DL (3.2-4.5); ANION GAP 11 MMOL/L (5-14); ASPARTATE AMINO TRANSFERASE 19 U/L (5-34); BILIRUBIN,TOTAL 0.4 MG/DL (0.1-1.0); BLOOD UREA NITROGEN 18 MG/DL (7-18); BUN/CREATININE RATIO 19; CALCIUM 9.8 MG/DL (8.5-10.1); CARBON DIOXIDE 24 MMOL/L (21-32); CHLORIDE 104 MMOL/L (98-107); CREATININE SERUM 0.96 MG/DL (0.60-1.30); GFR ESTIMATED > 60; GLUCOSE 103 MG/DL (70-105); POTASSIUM 3.7 MMOL/L (3.6-5.0); SODIUM 139 MMOL/L (135-145); TOTAL PROTEIN 7.8 GM/DL (6.4-8.2)
[2017-02-27] MEDS ORDERED: RT-ALBUTEROL SULF 2.5 MG/3 ML PRE-MIX VIAL ONE (05:44)
[2017-02-27] MEDS ORDERED: DEXAMETHASONE 4 MG/ML SDV (DECADRON) ONE (05:45)
[2017-02-27] MEDS ORDERED: RT-ALBUTEROL SULF 2.5 MG/3 ML PRE-MIX VIAL INH STA (05:47)
[2017-02-27] MEDS ORDERED: DEXAMETHASONE PF 10 MG/ML (DECADRON) VIAL INH STA (05:47)
[2017-02-27] MEDS ORDERED: RX-ALBUTEROL INHALER (VENTOLIN HFA) 18 GM IH ONE (06:09)
[2017-02-27] MEDS ORDERED: RX-ALBUTEROL INHALER (VENTOLIN HFA) 18 GM IH STA (06:12)
[2017-02-27 06:30] VITALS: BP 152/98
--- NOTE | 2017-02-27 07:42 | Diagnostic Imaging Report ---
PA and lateral chest. INDICATION: Shortness of breath. FINDINGS: The lungs demonstrate oligemia within the upper lung cm. There is prominence of interstitial markings at the lung bases. There is flattening of the diaphragms compatible with air trapping. Findings are compatible with underlying COPD. There is no focal infiltrate or evidence of an effusion. There is no pneumothorax. Heart size and mediastinal contours appear appropriate without evidence of failure. There are remote-appearing left posterior rib fractures. IMPRESSION: Features of COPD without radiographic evidence of an acute superimposed cardiopulmonary process. Dictated by: Dictated on workstation # [id number]
--- OUTSIDE RECORDS SUMMARY | 2017-03-02 12:56 | XMS REPORT | Continuity of Care Document ---
Author Author [facility] Organization [facility] Address Unknown Phone Unavailable Care Team Providers Care Food Cart Attendant Name Role Phone PCP Unavailable Source Comments Some departments are not documenting in the electronic medical record. If you do not see the information that you expected, contact Release of Information in the Health Information Management department at [phone] for further assistance in locating additional records.[facility] Active Allergies and Adverse Reactions Not on File Current Medications Not on file Active Problems Not on file Most Recent Encounters Date Type Specialty Providers Description 12/30/2016 Telephone Hepatology Corey Fuller MD Other - Bumped Appt Social History Tobacco Use Types Packs/Day Years Used Date Never Assessed Plan of Care Health Maintenance Due Date Last Done Comments Hepatitis C Screening 1962 Physical (Comprehensive) 1969 Exam Pertussis Vaccine 1973 Tetanus Vaccine 1979 Cervical Cancer Screening 1983 Breast Cancer Screening 2002 Colorectal Cancer 2012 Screening Influenza Vaccine 04/29/2017 Results from Last 3 Months Not on file
--- OUTSIDE RECORDS SUMMARY | 2017-03-02 12:56 | XMS REPORT ---
Author Author PAMELLA PHAM [facility] [employer] Address Unknown Phone Unavailable Care Team Providers Care Studio Potter Name Role Phone PAMELLA PHAM CP Unavailable Allergies No Known Allergies Problems Problem Type Condition ICD-9 Code Onset Dates Condition Status Problem Other and unspecified noninfectious gastroenteritis and colitis 558.9 Active Problem Anxiety state, unspecified 300.00 Active Problem Other dysfunctions of sleep stages or arousal from sleep 307.47 Active Problem Routine gynecological examination V72.31 Active Problem Unspecified breast screening V76.10 Active Problem Mastodynia 611.71 Active Problem Special screening examination, human papillomavirus [HPV] V73.81 Active Problem Screening for malignant neoplasm of the cervix V76.2 Active Problem Counseling on substance use and abuse V65.42 Active Problem Screening examination for venereal disease V74.5 Active Problem Hypopotassemia 276.8 Active Problem Abdominal pain, unspecified site 789.00 Active Problem Alcoholic cirrhosis of liver 571.2 Active Problem Unspecified infective otitis externa 380.10 Active Problem Need for prophylactic vaccination and inoculation, Influenza V04.81 Active Medications Medication Code System Code Instructions Start Date End Date Status Dosage Hydrocodone-Acetaminophen [facility] [place] [id number] 10-325 MG Orally 3 times a day January 09, 2015 1 tablet as needed- Results No Known Results Summary Purpose [employer] Submission
--- OUTSIDE RECORDS SUMMARY | 2017-03-02 12:56 | XMS REPORT ---
Author Author PAMELLA PHAM [facility] [employer] Address Unknown Phone Unavailable Care Team Providers Care Director Data Processing Name Role Phone PAMELLA PHAM CP Unavailable Allergies No Known Allergies Problems Problem Type Condition ICD-9 Code Onset Dates Condition Status Problem Other dysfunctions of sleep stages or arousal from sleep 307.47 Active Problem Other and unspecified noninfectious gastroenteritis and colitis 558.9 Active Problem Anxiety state, unspecified 300.00 Active Problem Unspecified infective otitis externa 380.10 Active Problem Alcoholic cirrhosis of liver 571.2 Active Problem Hypopotassemia 276.8 Active Medications No Known Medications Results No Known Results Summary Purpose [employer]Clinical[employer] Submission
== END 2017-02-27 06:30 | disposition home or self-care (01) ==
LOC: EDUNIT# 04:37 → ER 04:39
DX: J69.0 Pneumonitis due to inhalation of food and vomit (principal); J45.909 Unspecified asthma, uncomplicated; E78.00 Pure hypercholesterolemia, unspecified; I10 Essential (primary) hypertension; F41.9 Anxiety disorder, unspecified; F17.210 Nicotine dependence, cigarettes, uncomplicated
CPT/HCPCS: 36415; 71020; 80053; 85025; 94664

== ENCOUNTER 2018-01-02 12:51 | Emergency (ER) | payer MEDICAID ==
[~2018-01-02] VITALS: Ht 172.7 cm; Wt 108.9 kg
--- NOTE | 2018-01-02 13:33 | ED Integumentary General ---
General Chief Complaint: Skin/Wound Problems Stated Complaint: RASH UNDER BREAST Nursing Triage Note: TO ROOM C/O RASH UNDER AND BETWEEN BREAST. GET THIS OFTEN USUALLY GET LOTRISON CREAM, AND HYDROCODONE FOR PAIN. REDNESS UNDER AND BETWENN BREAST. Source: patient Exam Limitations: no limitations History of Present Illness Date Seen by Provider: January 02, 2018 Time Seen by Provider: 13:27 Initial Comments To ER with a burning, stinging painful red rash between and beneath each breast that recurred yesterday. She states she gets a history of these [place] infections beneath her breast about every 2-3 months, states that her very large breasts are to account for this. She denies fevers or chills. She has a recurring prescription for clotrimazole/betamethasone cream and she has been applying this since it recurred yesterday but denies improvement. She needs something for pain control. Timing/Duration: constant Severity: moderate Allergies and Home Medications Allergies Coded Allergies: Penicillins (Verified Allergy, Unknown, 01/02/18) Home Medications Clotrimazole/Betamethasone Dip 15 Gm Cream..g., 15 GM TP BID Prescribed by: ANA JARAMILLO on 10/22/16 1440 Fluconazole 100 Mg Tablet, 100 MG PO UD 2 po x1 dose, then 1 po daily Prescribed by: ANA JARAMILLO on 10/22/16 1440 Patient Home Medication List Home Medication List Reviewed: Yes Constitutional: see HPI EENTM: see HPI Respiratory: no symptoms reported Cardiovascular: no symptoms reported Genitourinary: no symptoms reported Musculoskeletal: no symptoms reported Skin: see HPI Psychiatric/Neurological: No Symptoms Reported Past Zlvjtzs-Pmgnpm-Acwtxh Hx Patient Social History Alcohol Use: Denies Use Recreational Drug Use: No Smoking Status: Never a Smoker Type Used: Electronic/Vapor 2nd Hand Smoke Exposure: Yes Recent Foreign Travel: No Contact w/Someone Who Travel: No Recent Infectious Disease Expo: No Recent Hopitalizations: No Seasonal Allergies Seasonal Allergies: No Past Medical History Surgeries: No Respiratory: No Cardiac: Yes High Cholesterol, Hypertension Neurological: No Genitourinary: No Gastrointestinal: No Musculoskeletal: No Endocrine: No HEENT: No Cancer: No Psychosocial: Yes Sleep Difficulties, Anxiety Integumentary: Yes Blood Disorders: No Family Medical History No Pertinent Family Hx Physical Exam Vital Signs Vital Signs - First Documented 01/02/18 13:01 Temp 98.0 Pulse 94 Resp 18 B/P (MAP) 139/79 (99) Pulse Ox 98 O2 Delivery Room Air Capillary Refill : Less Than 3 Seconds General Appearance: WD/WN, no apparent distress HEENT: PERRL/EOMI, normal ENT inspection Neck: non-tender, full range of motion Respiratory: no respiratory distress, no accessory muscle use Gastrointestinal: normal bowel sounds, non tender Neurologic/Psychiatric: alert, normal mood/affect, oriented x 3 Skin: normal color, warm/dry Skin Problem Character: other (There is an excoriated bright red erythematous rash between and beneath each breast. This is well demarcated and without evidence of cellulitis, it does appear to be intertrigo) Progress/Results/Core Measures Results/Orders Vital Signs/I&O 01/02/18 13:01 Temp 98.0 Pulse 94 Resp 18 B/P (MAP) 139/79 (99) Pulse Ox 98 O2 Delivery Room Air Blood Pressure Mean: 99 Departure Impression Primary Impression: Candidal intertrigo Disposition: HOME, SELF-CARE Condition: Stable Departure-Patient Inst. Decision time for Depature: 13:31 Referrals: NO,LOCAL PHYSICIAN (Family) Primary Care Physician Patient Instructions: NO INSTRUCTIONS GIVEN Add. Discharge Instructions: 1. Go without a bra as much as possible for the next 3-4 days to allow more airflow between and beneath her breasts. Mix the antibiotic ointment mupirocin with the clotrimazole/betamethasone cream and apply these twice daily for the next few days. Pain medication as directed. All discharge instructions reviewed with patient and/or family. Voiced understanding. Scripts Mupirocin (Mupirocin) 22 Gm Oint...g. 22 GM TP BID for 5 Days, #1 TUBE Prov: HALI CHAVARRIA APRN 01/02/18 Hydrocodone/Acetaminophen ([place] 5-325 Tablet) 1 Each Tablet 1 EACH PO Q4H PRN for PAIN-MODERATE TO SEVERE, #10 TAB Prov: HALI CHAVARRIA DIALS SUPERVISOR 01/02/18 HALI CHAVARRIA APRN January 02, 2018 13:33
[2018-01-02] MEDS ORDERED: HYDR-757 PO (13:34)
[2018-01-02] MEDS ORDERED: MUPI22OI2 TP (13:34)
[2018-01-02 13:40] VITALS: BP 139/79
== END 2018-01-02 13:35 | disposition home or self-care (01) ==
LOC: EDUNIT# 12:51 → ER 12:57
DX: B37.2 Candidiasis of skin and nail (principal); E78.00 Pure hypercholesterolemia, unspecified; I10 Essential (primary) hypertension; F41.9 Anxiety disorder, unspecified; Z88.0 Allergy status to penicillin; Z77.22 Contact with and (suspected) exposure to environmental tobacco smoke (acute) (chronic)
CPT/HCPCS: 99282

== ENCOUNTER 2023-03-16 14:54 | Emergency (ER) | payer MEDICAID ==
[~2023-03-16] VITALS: Ht 172 cm; Wt 79.3 kg
[~2023-03-16 14:54] MED LIST changes: +FLUC100T10 PO; -FLUC100T6 PO; -FLUC200T5; +FLUC200T9; +HYDR-4226 PO; +LISI1TAB44; -LISI1TAB6; +LURA40TA2; -LURA40TA3; +MUPI22OI2 TP; -NYST15CR; +NYST15CR35; -OMEP40CA36; +OMEP40CA6; +TRAZ-227; -TRAZ100T92
[2023-03-16 15:11] VITALS: BP 145/90
--- NOTE | 2023-03-16 15:33 | ED Lower Extremity ---
General Chief Complaint: Lower Extremity Stated Complaint: FALL | RT ANKLE INJ | LT TOE INJ Nursing Triage Note: pt presents to ED with c/o right ankle fracture and left big toe pain after tripping and falling last noc. pt was seen at [facility] and XRs showed multiple fractures in right ankle, the toe was not X-rayed. pt was intoxicated at time of ER visit so declined treatment. "now that I'm sober, I want to take care of my ankle and toe" Source: patient Exam Limitations: no limitations History of Present Illness Date Seen by Provider: Mar 16, 2023 Time Seen by Provider: 15:22 Initial Comments 62-year-old female presents to the ER with complaint of right ankle and foot and left great toe pain. She was drinking alcohol with her friends last night and fell, she was taken to [facility] ER via ambulance. She was told that her right ankle is fractured. She states that because she was intoxicated, she refused treatment. They placed her in a walking boot. She states she is here today because she would like treatment. Allergies and Home Medications Allergies Coded Allergies: Penicillins (Verified Allergy, Unknown, 01/02/18) Patient Home Medication List Home Medication List Reviewed: Yes Alprazolam (Alprazolam) 1 Mg Tablet, (Reported) Entered as Reported by: ROMAN GUADARRAMA on 10/22/16 1435 Atorvastatin Calcium (Atorvastatin Calcium) 40 Mg Tablet, (Reported) Entered as Reported by: ROMAN GUADARRAMA on 10/22/16 1435 Clotrimazole/Betamethasone Dip (Lotrisone Cream) 15 Gm Cream..g., 15 GM TP BID Prescribed by: ANA JARAMILLO on 10/22/16 1440 Fluconazole (Fluconazole) 200 Mg Tablet, (Reported) Entered as Reported by: ROMAN GUADARRAMA on 10/22/16 1435 Fluconazole (Fluconazole) 100 Mg Tablet, 100 MG PO UD Prescribed by: ANA JARAMILLO on 10/22/16 1440 Fluticasone Propionate (Fluticasone Propionate) 16 Gm [place].susp, (Reported) Entered as Reported by: ROMAN GUADARRAMA on 10/22/16 1435 Hydrocodone/Acetaminophen (Hydrocodone/Acetaminophen 5 MG/325 MG TAB) 1 Each Tablet, 1 EACH PO Q4H PRN for PAIN-MODERATE TO SEVERE Prescribed by: HALI CHAVARRIA on 01/02/18 1334 Hydrocodone/Acetaminophen (Hydrocodone-Acetamin 5-325 mg) 5 Mg-325 Mg Tablet, 1 TAB PO Q4H PRN for PAIN-MODERATE (5-7) Prescribed by: Barbara Goff on 03/16/23 1637 Hydroxyzine Pamoate (Hydroxyzine Pamoate) 50 Mg Capsule, (Reported) Entered as Reported by: ROMAN GUADARRAMA on 10/22/16 1435 Ibuprofen (Ibuprofen) 800 Mg Tablet, (Reported) Entered as Reported by: ROMAN GUADARRAMA on 10/22/16 1435 Lisinopril/Hydrochlorothiazide (Lisinopril-Hctz 10-12.5 mg Tab) 1 Each Tablet, (Reported) Entered as Reported by: ROMAN GUADARRAMA on 10/22/16 1435 Lurasidone HCl (Latuda) 40 Mg Tablet, (Reported) Entered as Reported by: ROMAN GUADARRAMA on 10/22/16 1435 Mupirocin (Mupirocin) 22 Gm Oint...g., 22 GM TP BID Prescribed by: HALI CHAVARRIA on 01/02/18 1334 Omeprazole (Omeprazole) 40 Mg Capsule., (Reported) Entered as Reported by: ROMAN GUADARRAMA on 10/22/16 1435 Trazodone HCl (Trazodone HCl) 100 Mg Tablet, (Reported) Entered as Reported by: ROMAN GUADARRAMA on 10/22/16 1435 Vortioxetine Hydrobromide (Trintellix) 10 Mg Tablet, (Reported) Entered as Reported by: ROMAN GUADARRAMA on 10/22/16 1435 Zolpidem Tartrate (Zolpidem Tartrate) 10 Mg Tablet, (Reported) Entered as Reported by: ROMAN GUADARRAMA on 10/22/16 1435 Review of Systems Constitutional: see HPI Musculoskeletal: see HPI Past Ufanyng-Hzgqgl-Vjqqbp Hx Patient Social History Tobacco Use?: No Use of E-Cig and/or Vaping dev: Yes Substance use?: No Alcohol Use?: No Pt feels they are or have been: No Seasonal Allergies Seasonal Allergies: No Past Medical History Surgeries: No Respiratory: No Cardiac: Yes High Cholesterol, Hypertension Neurological: No Genitourinary: No Gastrointestinal: No Musculoskeletal: No Endocrine: No HEENT: No Cancer: No Psychosocial: Yes Sleep Difficulties, Anxiety Integumentary: Yes Blood Disorders: No Family Medical History No Pertinent Family Hx Physical Exam Vital Signs Vital Signs - First Documented 03/16/23 15:11 Temp 37.2 Pulse 101 Resp 18 B/P (MAP) 145/90 (108) Pulse Ox 96 O2 Delivery Room Air Capillary Refill : Height, Weight, BMI Height: 5'8.00" Weight: 240lbs. oz. [id number]; 26.00 BMI Method:Stated General Appearance: WD/WN, no apparent distress Neck: supple, normal inspection Cardiovascular: regular rate, rhythm Respiratory: lungs clear, normal breath sounds, no respiratory distress, no accessory muscle use Ankles: right ankle limited range of motion, right ankle pain, right ankle soft tissue tenderness, right ankle swelling (Mild swelling), right ankle other (Sensation intact distally, cap refill less than 2 seconds, pulses intact) Feet: bilateral foot abrasions/lacerations (Abrasion to left toe, surrounded by erythema/ecchymosis), bilateral foot pain (Pain in the left great toe and right foot), bilateral foot soft tissue tenderness, bilateral foot other (Cap refill less than 2 seconds, sensation intact distally, pulses intact) Neurologic/Psychiatric: alert, normal mood/affect Skin: warm/dry, other (Erythema/ecchymosis to left great toe) Progress/Results/Core Measures Results/Orders My Orders Orders - BARBARA STEVENS APRN Ankle, Right, 3 Views (03/16/23 15:27) Foot, Bilateral, 3 View (03/16/23 15:27) Vital Signs/I&O 03/16/23 03/16/23 15:11 17:38 Temp 37.2 Pulse 101 78 Resp 18 20 B/P (MAP) 145/90 (108) Pulse Ox 96 98 O2 Delivery Room Air Room Air Blood Pressure Mean: 108 Progress Progress Note : Progress Note Patient seen and evaluated, resting comfortably in recliner, no acute distress. Based on exam and symptoms, x-ray of right foot and ankle and left foot ordered. 1630 imaging reviewed. Ankle x-ray shows nondisplaced distal fibular fracture below the level of the tibial plafond. Transverse venous sclerosis in posterior calcaneus likely due to a stress fracture. No fracture seen in bilateral feet. Results discussed with patient. Will place patient in walking boot, patient already had a walking boot from [facility], but is requesting a new one because she fell again after leaving the hospital last night resulting in the walking boot getting covered with mud. Will also give prescription for crutches and pain medication. Discharge instructions and return precautions provided. Diagnostic Imaging Diagonstic Imaging: Xray Plain Films/CT/US/NM/MRI: ankle Comments [facility], [place] NAME: NORMA VÁZQUEZ [facility] REC#: [id number] PT STATUS: REG ER : 1960 PHYSICIAN: BARBARA STEVENS APRN ADMIT DATE: 03/16/23/ER Draft Date of Exam:03/16/23 ANKLE, RIGHT, 3 VIEWS EXAMINATION: Right ankle radiographs, 3 views. COMPARISON: None. HISTORY: 62-year-old female, right ankle pain. FINDINGS: There is a nondisplaced distal fibular fracture below the level of the tibial plafond. The alignment of the ankle mortise is unremarkable. There is no tibiotalar joint effusion. There is a transverse band of sclerosis in the posterior calcaneus which may reflect a nondisplaced stress related fracture. IMPRESSION: 1. Essentially nondisplaced distal fibular fracture below the level of the tibial plafond. 2. Unremarkable alignment of the ankle mortise. 3. Transverse band of sclerosis in the posterior calcaneus likely reflecting a stress related fracture. Dictated on workstation # [id number] Dict: 03/16/23 1559 Trans: 03/16/23 1605 [facility] [id number] Interpreted by: RONDA SALDAÑA MD Electronically signed by: Diagonstic Imaging: Xray Plain Films/CT/US/NM/MRI: other (Bilateral feet) Comments [facility] [place] [place] NAME: NORMA VÁZQUEZ [facility] REC#: [id number] PT STATUS: REG ER : 1960 PHYSICIAN: BARBARA STEVENS APRN ADMIT DATE: 03/16/23/ER Draft Date of Exam:03/16/23 FOOT, BILATERAL, 3 VIEW HISTORY: Bilateral foot pain. TECHNIQUE: Three views of the bilateral feet. COMPARISON: None. FINDINGS: No acute fracture or dislocation is seen in the bilateral feet. Alignment appears normal. Joint spaces are preserved. No erosions are seen. On the lateral view of the right foot, a mildly displaced fracture of the lateral malleolus is noted. IMPRESSION: 1. No acute fracture is seen in the bilateral feet. 2. Fracture of the right lateral malleolus, please refer to separate report. Dictated on workstation # [id number] Dict: 03/16/23 1600 Trans: 03/16/23 1605 [id number] Interpreted by: ED MCCABE MD Electronically signed by: Departure Impression Primary Impression: Fibula fracture Additional Impression: Calcaneal fracture Disposition: 01 HOME, SELF-CARE Condition: Stable Departure-Patient Inst. Decision time for Depature: 16:33 Referrals: MARYSOL TRUJILLO MD Patient Instructions: Ankle Fracture (DC) Add. Discharge Instructions: Wear the boot at all times. Use crutches to keep weight off of your foot. You may take the prescription for the crutches to any pharmacy or to the [facility] medical supply store. Call orthopedics tomorrow to schedule a follow-up appointment. Take Talala as needed for pain. It can make you sleepy, it can also cause constipation, so only take when needed. You may also take 800 mg ibuprofen every 8 hours with food as needed for pain. Return for severe pain, numbness or tingling in the foot, or any other new, concerning, or worsening symptoms. All discharge instructions reviewed with patient and/or family. Voiced understanding. Scripts Hydrocodone/Acetaminophen (Hydrocodone-Acetamin 5-325 mg) 5 Mg-325 Mg Tablet 1 TAB PO Q4H PRN for PAIN-MODERATE (5-7), #20 TAB 0 Refills Prov: BARBARA STEVENS APRN 03/16/23 BARBARA STEVENS APRN Mar 16, 2023 15:33
--- NOTE | 2023-03-16 16:05 | Diagnostic Imaging Report ---
HISTORY: Bilateral foot pain. TECHNIQUE: Three views of the bilateral feet. COMPARISON: None. FINDINGS: No acute fracture or dislocation is seen in the bilateral feet. Alignment appears normal. Joint spaces are preserved. No erosions are seen. On the lateral view of the right foot, a mildly displaced fracture of the lateral malleolus is noted. IMPRESSION: 1. No acute fracture is seen in the bilateral feet. 2. Fracture of the right lateral malleolus, please refer to separate report. Dictated by: Dictated on workstation # [id number]
--- NOTE | 2023-03-16 16:06 | Diagnostic Imaging Report ---
EXAMINATION: Right ankle radiographs, 3 views. COMPARISON: None. HISTORY: 62-year-old female, right ankle pain. FINDINGS: There is a nondisplaced distal fibular fracture below the level of the tibial plafond. The alignment of the ankle mortise is unremarkable. There is no tibiotalar joint effusion. There is a transverse band of sclerosis in the posterior calcaneus which may reflect a nondisplaced stress related fracture. IMPRESSION: 1. Essentially nondisplaced distal fibular fracture below the level of the tibial plafond. 2. Unremarkable alignment of the ankle mortise. 3. Transverse band of sclerosis in the posterior calcaneus likely reflecting a stress related fracture. Dictated by: Dictated on workstation # [id number]
[2023-03-16] MEDS ORDERED: ACHD5005 PO (16:37)
== END 2023-03-16 16:55 | disposition home or self-care (01) ==
LOC: EDUNIT# 14:54 → ER 14:57
DX: S92.001A Unspecified fracture of right calcaneus, initial encounter for closed fracture (principal); S82.831A Other fracture of upper and lower end of right fibula, initial encounter for closed fracture; F17.290 Nicotine dependence, other tobacco product, uncomplicated; W01.0XXA Fall on same level from slipping, tripping and stumbling without subsequent striking against object, initial encounter
CPT/HCPCS: 73610; 73630; 99283; L2114